=== PATIENT | male | born 1960 ===

== ENCOUNTER 2017-07-06 03:56 | Emergency (ER) | payer OTHER ==
[~2017-07-06] VITALS: Ht 167.6 cm; Wt 71.2 kg
[~2017-07-06 03:56] MED LIST: GILTUSS TR TAB1 EACH PO; LISINOPRIL20 MG PO; LISINOPRIL5 MG; MEDROL4 MG PO; PROVENTIL3 ML/2.5 M IH; ULTRACET PO; ZITHROMAX500 MG PO; ZYNCOF 20-400120 ML PO
[2017-07-06] MEDS ORDERED: LISINOPRIL20 MG (04:02)
== END 2017-07-06 10:45 | disposition home or self-care (01) ==
LOC: ER 03:56
DX: N20.0 Calculus of kidney (principal); M54.5 Low back pain

== ENCOUNTER 2018-05-26 03:05 | Emergency (ER) | payer OTHER ==
[~2018-05-26] VITALS: Ht 167.6 cm; Wt 74.4 kg
[~2018-05-26 03:05] MED LIST changes: +LISINOPRIL20 MG
[2018-05-26] MEDS ORDERED: KETO10TA2 PO (06:15)
== END 2018-05-26 14:24 ==
LOC: ER 03:05
DX: R07.89 Other chest pain (principal)

== ENCOUNTER 2020-03-07 08:08 | Outpatient (CLI) | payer OTHER ==
[~2020-03-07 08:08] MED LIST changes: +KETO10TA2 PO
== END 2020-03-07 08:10 | disposition home or self-care (01) ==
LOC: SONOGRAMA 08:08
PROVIDERS: ATTEND Pathology Anatomic Pathology & Clinical Pathology
DX: E04.1 Nontoxic single thyroid nodule (principal)

== ENCOUNTER 2022-10-22 23:59 | Emergency (ER) | payer OTHER ==
[~2022-10-22] VITALS: Ht 167.6 cm; Wt 70.3 kg
[2022-10-23] MEDS ORDERED: KETO10TA2 PO ×2 (04:42→04:43)
== END 2022-10-23 04:56 ==
LOC: ER 23:59
DX: N20.0 Calculus of kidney (principal); Z87.442 Personal history of urinary calculi